=== PATIENT | male | born 2000 | race Hispanic/Latino ===

== ENCOUNTER 2021-10-05 21:43 | Emergency (ER) | payer OTHER, SELFPAY ==
[2021-10-05 21:52] VITALS: BP 120/63; PULSE 66; RESP 18; TEMP 36.8; O2SAT 97
--- NOTE | 2021-10-05 23:59 | ED_ITS ---
HPI - Skin/Abscess/Foreign Bdy General Chief complaint: Skin/Abscess/Foreign Body Stated complaint: lt grt toe possible infection Time Seen by Provider: 10/05/21 23:59 Source: patient Mode of arrival: Ambulatory History of Present Illness HPI narrative: Patient's family 20-year-old male who presents with right big toe pain. It has been ongoing for last 2 weeks. He says he tried to get dirt out from underneath his nail he now has some skin growing on top of his nail and the tip of his toe hurts every time he touches it or accident his head on something. He has had no fever or chills. It is not erythematous. He is able to walk. Related Data Allergies Allergy/AdvReac Type Severity Reaction Status Date / Time No Known Drug Allergies Allergy Verified 10/05/21 21:53 Review of Systems Review of Systems Narrative: GENERAL: Denies chills,fever HEENT: Denies throat pain RESPIRATORY: Denies dyspnea, cough, wheezing CARDIOVASCULAR: Denies chest pain, palpitations GASTROINTESTINAL: Denies nausea, vomiting MUSCULOSKELETAL: Denies extremity pain, injury SKIN: See HPI NEUROLOGIC: Denies weakness, dizziness, headache, numbness 8 point review of systems is negative except for those stated above and HPI Exam Initial Vital Signs Initial Vital Signs: Vital Signs Temperature 98.2 F 10/05/21 21:52 Pulse Rate 66 10/05/21 21:52 Respiratory Rate 18 10/05/21 21:52 Blood Pressure 120/63 10/05/21 21:52 Pulse Oximetry 97 10/05/21 21:52 GENERAL: Well-appearing, well-nourished and in no acute distress. CARDIOVASCULAR: peripheral pulses in tact, cap refill <2 sec RESPIRATORY: No respiratory distress, speaks in full sentences without difficulty EXTREMITIES: Normal range of motion, no clubbing or edema. Neurovascularly i ntact NEUROLOGICAL: Cranial nerves II through XII grossly intact. Normal gait and speech. SKIN: Right big toe there is some swelling distally no erythema no fluctuation Procedures Abscess I/D I&D #1: Site: foot (Big toe) Local Anesthetic: lidocaine 1% Amount of anesthesia used (mL): 2 Technique: needle aspiration Amount of fluid expressed (mL): 0.25 Course Orders Ordered: Discontinued Medications Lidocaine HCl (Lidocaine 1% (Pf)) 2 ml SUBCUT NOW ONE Stop: 10/06/21 00:05 Vital Signs Vital signs: Vital Signs - 8 hr 10/05/21 21:52 Temperature 98.2 F Pulse Rate 66 Respiratory Rate 18 Blood Pressure 120/63 Pulse Oximetry 97 MDM - Skin/Abscess/Foreign Bdy MDM Narrative Medical decision making narrative: Patient has a small paronychia with some extra skin growing as well past skin was easily removed small amount of fluid also removed. No erythema no significant swelling for streaking. Discharge Plan Departure Patient Disposition: Home Clinical Impression: Acute paronychia of toe of right foot Instructions: Paronychia Activity Restrictions/Additional Instructions: *You have been diagnosed with paronychia *What to do: Monitor foot closely for any sign of infection. May soak in bucket with soap and water 1 to 2 times a day. Apply antibiotic ointment on it 1 or 2 times a day. It should start to improve now. No need for other antibiotics at this time *Continue to take medications as directed Tylenol or Motrin as needed for pain *Follow up with your primary care provider in 2-3 days or call [phone] *Return to ER if you should have redness pus swelling pain or any new, worsening or concerning symptoms
== END 2021-10-06 00:37 | disposition home or self-care (01) ==
PROVIDERS: Emergency Provider Emergency Medicine
DX: L03.031 Cellulitis of right toe (principal)
CPT/HCPCS: 10060; 99281; 99283